=== PATIENT | male | born 1970 | race Caucasian/White ===

== ENCOUNTER 2021-11-25 20:02 | Emergency (ER) ==
[~2021-11-25] VITALS: Ht 182.9 cm; Wt 105.5 kg
== END 2021-11-25 21:00 | disposition left against medical advice (07) ==
LOC: M ED 20:02
DX: Z53.21 Procedure and treatment not carried out due to patient leaving prior to being seen by health care provider (principal)

== ENCOUNTER → 2022-09-25 | Outpatient (CLI) | payer OTHER ==
[2022-09-25 14:28] LABS: HEMATOCRIT 45.3 % (42.0-52.0); HEMOGLOBIN 14.7 g/dl (13.5-17.5); MEAN CORPUSCULAR HEMOGLOBIN 31.4 pg (27.0-33.0); MEAN CORPUSCULAR HGB CONC 32.5 g/dl (32.0-36.5); MEAN CORPUSCULAR VOLUME 96.8 fl (80.0-96.0); PLATELET COUNT, AUTOMATED 155 10^3/uL (150-450); RED BLOOD COUNT 4.68 10^6/uL (4.30-6.10); WHITE BLOOD COUNT 6.2 10^3/uL (4.0-10.0)
[2022-09-25 14:51] LABS: MAGNESIUM LEVEL 1.9 MG/DL (1.8-2.4)
[2022-09-25 14:54] LABS: ALBUMIN 3.8 G/DL (3.2-5.2); ALKALINE PHOSPHATASE 49 U/L (46-116); ALT/SGPT 43 U/L (7.0-40); AST/SGOT 27 U/L (<34); BILIRUBIN,TOTAL 0.5 MG/DL (0.3-1.2); BLOOD UREA NITROGEN 16 MG/DL (9-23); CALCIUM LEVEL 9.3 MG/DL (8.5-10.1); CARBON DIOXIDE LEVEL 29 MMOL/L (20-31); CHLORIDE LEVEL 109 MMOL/L (98-107); CHOLESTEROL LEVEL 143 MG/DL (<200); CHOLESTEROL RISK RATIO 3.31 (<5); CREATININE FOR GFR 0.91 MG/DL (0.70-1.30); GLOMERULAR FILTRATION RATE > 60.0 (>56); GLUCOSE, FASTING 83 MG/DL (60-100); HDL CHOLESTEROL 43.1 MG/DL (>40); LDL CHOLESTEROL 71.1 MG/DL (<100); NON-HDL-C 100 MG/DL; POTASSIUM SERUM 4.4 MMOL/L (3.5-5.1); SODIUM LEVEL 142 MMOL/L (136-145); TOTAL PROTEIN 6.4 G/DL (5.7-8.2); TRIGLYCERIDES LEVEL 144 MG/DL (<150)
[2022-09-25 15:21] LABS: HIV 1&2 SCREEN CENTAUR NEGATIVE (NEGATIVE)
[2022-09-25 15:29] LABS: HEPATITIS C VIRUS ABY INDEX 0.1 INDEX (<0.8)
== END ==
LOC: M RAD 13:21
PROVIDERS: ATTEND Physician Assistant
DX: M25.511 Pain in right shoulder (principal); R25.2 Cramp and spasm; F19.11 Other psychoactive substance abuse, in remission; Z11.59 Encounter for screening for other viral diseases; Z11.4 Encounter for screening for human immunodeficiency virus [HIV]; E78.5 Hyperlipidemia, unspecified; M19.011 Primary osteoarthritis, right shoulder

== ENCOUNTER 2023-03-18 12:39 | Emergency (ER) | payer OTHER ==
[~2023-03-18] VITALS: Ht 182.9 cm; Wt 91.4 kg
[2023-03-18 12:41] VITALS: TEMP 97.7
[2023-03-18 13:24] VITALS: O2SAT 98
[2023-03-18 13:30] VITALS: BP 139/76
== END 2023-03-18 13:42 | disposition left against medical advice (07) ==
LOC: M ED 12:39
DX: J93.9 Pneumothorax, unspecified (principal); Z53.9 Procedure and treatment not carried out, unspecified reason; F17.200 Nicotine dependence, unspecified, uncomplicated

== ENCOUNTER 2023-03-21 10:27 | Emergency (ER) | payer OTHER ==
[~2023-03-21] VITALS: Ht 182.9 cm; Wt 90.9 kg
[2023-03-21] MEDS ORDERED: VITA100T28 (10:40)
[2023-03-21] MEDS ORDERED: THERTAB21 (10:40)
[2023-03-21] MEDS ORDERED: OXYC1TAB23 (10:40)
[2023-03-21] MEDS ORDERED: ACET1TAB55 (10:40)
[2023-03-21] MEDS ORDERED: FOLI1TAB11 (10:40)
[2023-03-21 11:39] LABS: BASO # 0.1 10^3/uL (0.0-0.2); BASO % 0.6 % (0.0-1.0); EOS # 0.2 10^3/uL (0.0-0.5); EOS % 2.2 % (0.0-3.0); HEMATOCRIT 44.5 % (42.0-52.0); HEMOGLOBIN 14.7 g/dl (13.5-17.5); LYMPH # 1.3 10^3/uL (1.5-5.0); LYMPH % 12.1 % (24.0-44.0); MEAN CORPUSCULAR HEMOGLOBIN 31.3 pg (27.0-33.0); MEAN CORPUSCULAR VOLUME 94.7 fl (80.0-96.0); MONO # 0.8 10^3/uL (0.0-0.8); MONO % 7.2 % (2.0-8.0); NEUTROPHILS # 8.5 10^3/uL (1.5-8.5); NEUTROPHILS % 77.2 % (36.0-66.0); PLATELET COUNT, AUTOMATED 247 10^3/uL (150-450); WHITE BLOOD COUNT 11.1 10^3/uL (4.0-10.0)
[2023-03-21 12:08] LABS: ALBUMIN 3.5 G/DL (3.2-5.2); ALKALINE PHOSPHATASE 65 U/L (46-116); ALT/SGPT 35 U/L (7.0-40); AST/SGOT 17 U/L (<34); BILIRUBIN,DIRECT 0.2 MG/DL (<0.4); BILIRUBIN,TOTAL 0.6 MG/DL (0.3-1.2); BLOOD UREA NITROGEN 12 MG/DL (9-23); CALCIUM LEVEL 9.2 MG/DL (8.5-10.1); CARBON DIOXIDE LEVEL 26 MMOL/L (20-31); CHLORIDE LEVEL 107 MMOL/L (98-107); CREATININE FOR GFR 0.78 MG/DL (0.70-1.30); GLOMERULAR FILTRATION RATE > 60.0 (>56); GLUCOSE, FASTING 82 MG/DL (60-100); POTASSIUM SERUM 4.5 MMOL/L (3.5-5.1); SODIUM LEVEL 139 MMOL/L (136-145); TOTAL PROTEIN 6.3 G/DL (5.7-8.2)
[2023-03-21 12:17] LABS: RSV AMPLIFICATION NEGATIVE (NEGATIVE)
[2023-03-21] MEDS ORDERED: KETOROLAC 30 MG/ML 1ML VIAL IV ONE (13:05)
[2023-03-21 13:15] VITALS: BP 150/86; O2SAT 99
[2023-03-21] MEDS ORDERED: KETO10TAB PO (13:21)
[2023-03-21 13:26] VITALS: TEMP 99.8
== END 2023-03-21 13:30 | disposition home or self-care (01) ==
LOC: M ED 10:27
DX: J93.9 Pneumothorax, unspecified (principal); F17.200 Nicotine dependence, unspecified, uncomplicated
CPT/HCPCS: 71045; 71250; 80048; 80076; 85025; 87631; 93005; 93041; 94760; 96374; 99285; J1885